=== PATIENT | male | born 1970 | race Caucasian/White ===

== ENCOUNTER → 2020-11-13 | Outpatient (CLI) | payer BC ==
[~2020-11-13] MED LIST: COLCRYS0.6 MG PO; NORVASC 5 MG TAB5 MG PO; PREDNISONE10 MG PO; ZYLOPRIM 100 M100 MG PO
== END ==
LOC: SLEEP 14:09
DX: G47.33 Obstructive sleep apnea (adult) (pediatric) (principal); I10 Essential (primary) hypertension; E78.00 Pure hypercholesterolemia, unspecified; N20.0 Calculus of kidney; F17.290 Nicotine dependence, other tobacco product, uncomplicated
CPT/HCPCS: 95810